=== PATIENT | female | born 2000 | race Caucasian/White ===

== ENCOUNTER 2019-01-26 20:53 | Inpatient (IN) | payer MEDICAID ==
[~2019-01-26] VITALS: Ht 172.7 cm; Wt 129.3 kg
[2019-01-26 21:00] VITALS: BP_SYST 147
--- NOTE | 2019-01-26 21:05 | NUR ---
Patient triaged and placed in waiting room. VSS and patient appears in no acute distress at this time. Accompanied by self , awaiting available bed, and MD notified of need for MSE.
--- NOTE | 2019-01-26 22:17 | NUR ---
PT AMBULATORY TO BED 2 FOR EVALUATION
--- NOTE | 2019-01-26 22:30 | NUR ---
Pt BIB family to ED C/O "pins and needles" tingling on skin top of chest radiating to front of neck and towards back of neck. Has been Dx with fibromyalgia in the past. Otherwise no significant med hx. Visited Urgent care and was given Xanox x 1 did not help much. No other injuries and or complaints noted and or observed. VSS no s/s of acute distress. Resting on gurney with rails up
--- NOTE | 2019-01-26 23:37 | NUR ---
Dr. Zuniga bedside for Pt eval
[2019-01-26] MEDS ORDERED: IPRATROPIUM/ALBUTEROL SULFATE 3 ML AMPUL.NEB (DUONEB) INH ONE (23:45)
[2019-01-26 23:46] LABS: BILIRUBIN,URINE NEGATIVE (NEGATIVE); BLOOD, URINE NEGATIVE (NEGATIVE); CLARITY/URINE CLEAR (CLEAR); COLOR,URINE YELLOW (YELLOW); GLUCOSE,URINE NEGATIVE (NEGATIVE); KETONES,URINE NEGATIVE (NEGATIVE); LEUKOCYTE ESTERASE ,URINE NEGATIVE (NEGATIVE); NITRITE, URINE NEGATIVE (NEGATIVE); PH,URINE 7.5 (5.0-8.0); PROTEIN URINE TRACE (NEGATIVE); UROBILINOGEN,URINE 0.2 (0.2-1.0)
[2019-01-26 23:49] LABS: BACTERIA,URINE FEW /HPF (None Seen); RBC,URINE 0-3 /HPF (0-3); WBC,URINE 0-3 /HPF (0-3)
--- NOTE | 2019-01-26 23:50 | NUR ---
RT bedside to adm breathing tx, Pt in stable condition
--- NOTE | 2019-01-27 00:02 | NUR ---
EKG performed bedside. Dr. Zuniga aware
[2019-01-27 01:16] LABS: BASOPHILS % (AUTO) 0.4 % (0.0-2.0); EOSINOPHILS # (AUTO) 0.1 K/uL (0.0-0.4); EOSINOPHILS % (AUTO) 0.9 % (0.0-4.0); HEMATOCRIT 37.8 % (36-48); HEMOGLOBIN 12.4 g/dL (12.0-16.0); LYMPHOCYTES # (AUTO) 5.2 K/uL (1.0-5.5); LYMPHOCYTES % (AUTO) 48.5 % (20.5-51.5); MEAN CORPUSCULAR HEMOGLOBIN 25 pg (27-31); MEAN CORPUSCULAR HGB CONC 33 % (32-36); MEAN CORPUSCULAR VOLUME 77 fL (79.0-98.0); MONOCYTES # (AUTO) 0.7 K/uL (0.0-1.0); MONOCYTES % (AUTO) 6.7 % (1.7-9.3); NEUTROPHILS # (AUTO) 4.7 K/uL (1.8-7.7); NEUTROPHILS % (AUTO) 43.5 % (40.0-70.0); PLATELET COUNT (AUTO) 383 K/uL (130-430); RED BLOOD CELL COUNT(AUTO) 4.94 MIL/uL (4.2-6.2); RED CELL DISTRIBUTION WIDTH 14.1 % (9.0-15.0); WHITE BLOOD COUNT (AUTO) 10.8 K/uL (4.5-11.0)
[2019-01-27 01:24] LABS: CALCIUM 8.8 mg/dL (8.4-11.0); CREATININE 0.8 mg/dL (0.55-1.30); POTASSIUM 3.4 mmol/L (3.5-5.1)
--- NOTE | 2019-01-27 01:30 | NUR ---
Pt states feeling a bit better. VSS no s/s of acute distress. Resting on gurney with rails up
[2019-01-27 01:39] LABS: ALBUMIN 3.4 g/dL (3.4-4.8); THYROID STIMULATING HORMONE 2.32 uIu/mL (0.36-3.74); TOTAL BILIRUBIN 0.5 mg/dL (0.0-1.0)
[2019-01-27] MEDS ORDERED: LORazepam 1 MG TABLET PO ONE (02:00)
[2019-01-27 02:17] LABS: BARBITURATE, URINE NEGATIVE (NEG <=200); BENZODIAZEPINE, URINE POSITIVE (NEG <=150); CANNABINOID, URINE POSITIVE (NEG <=50); COCAINE, URINE NEGATIVE (NEG <=150); METHAMPHETAMINES SCREEN,URINE NEGATIVE (NEG <=500); OPIATE, URINE NEGATIVE (NEG <=100); PHENCYCLIDINE SCREEN,URINE NEGATIVE (NEG <=25); URINE AMPHETAMINE NEGATIVE (NEG <=500); URINE METHADONE NEGATIVE (NEG <=200); URINE OXYCODONE SCREEN NEGATIVE (NEG <=100); URINE PROPOXYPHENE SCREEN NEGATIVE (NEG <=300)
[2019-01-27 02:18] LABS: UR TRICYCLIC ANTIDEPRESSANTS NEGATIVE (NEG <=300)
--- NOTE | 2019-01-27 04:34 | NUR ---
TELEPHONE REPORT FROM ER NURSE Telephone report was received from BENJAMIN Cortes, ER nurse. Report was endorsed to primary nurse receiving patient, Ella Paul RN.
[2019-01-27 04:54] VITALS: BP_SYST 131
--- NOTE | 2019-01-27 04:54 | NUR ---
Patient will be admitted to care of Dr. Rooney. Admitted to Med Surg unit. Will go to room 120B. Belongings list completed. Summary report printed. Report will be given at bedside.
--- NOTE | 2019-01-27 04:54 | NUR ---
ADMISSION NOTE Received patient from ER via pilo, received report from BENJAMIN FOX. Patient admitted with diagnosis of NEUROPATHY. Patient oriented to hospital routine, call light, toileting and safety-patient verbalized understanding.
--- NOTE | 2019-01-27 04:54 | NUR ---
Transfer to [facility] via ACLS protocol. Licensed nurse present. IV present no signs or symptoms of infiltration.
[2019-01-27] MEDS ORDERED: LORA-259 PO (05:08)
--- NOTE | 2019-01-27 06:13 | NUR ---
RN ROUNDS PT RESTING IN BED WITH VISITOR AT BEDSIDE, NO S/S OF ACUTE DISTRESS, BREATHING IS EVEN AND UNLABORED TO ROOM AIR. IV IS SALINE LOCKED. EXTRA BLANKETS BROUGHT PER PT REQUEST. PT EDUCATED ON USE OF CALL LIGHT AND ENCOURAGED TO CALL FOR FURTHER ASSISTANCE. SAFETY MAINTAINED: BED LOCKED IN LOWEST POSITION, CALL LIGHT WITH PT, SIDE RAILS UP X2, BED ALARM ON, CLOSE TO NURSES STATION. WILL MONITOR.
--- NOTE | 2019-01-27 06:20 | NUR ---
CLOSING NOTE ALL NEEDS MET DURING SHIFT. SAFETY MAINTAINED. WILL ENDORSE CARE TO DAY SHIFT RN.
[2019-01-27 08:00] VITALS: BP_SYST 134
--- NOTE | 2019-01-27 08:00 | NUR ---
Note Pt sitting up in bed, no SOB/resp distress or pain/discomfort was noted at this time. IV in right AC intact and patent. No needs noted at this time. Call light within reach.
[2019-01-27] MEDS ORDERED: MUPIROCIN 2% TOPICAL OINTMENT 22 GM NS PRN (08:15)
[2019-01-27] MEDS ORDERED: MAGNESIUM SULFATE 50 ML IV PRN (08:15)
[2019-01-27] MEDS ORDERED: LORazepam 2 MG/ML VIAL IVP PRN (08:15)
[2019-01-27] MEDS ORDERED: ONDANSETRON HCL 4 MG/2 ML VIAL IVP PRN (08:15)
[2019-01-27] MEDS ORDERED: ACETAMINOPHEN 325 MG TABLET PO PRN (08:15)
[2019-01-27] MEDS ORDERED: ZOLPIDEM TARTRATE 5 MG TABLET PO PRN (08:15)
[2019-01-27] MEDS ORDERED: MORPHINE 4 MG/ML INJ. SYRINGE IVP PRN ×2 (08:15)
[2019-01-27] MEDS ORDERED: DOCUSATE SODIUM 100 MG CAPSULE PO PRN (08:15)
[2019-01-27] MEDS ORDERED: POTASSIUM CHLORIDE 20 MEQ TAB.PRT.SR PO PRN (08:15)
--- NOTE | 2019-01-27 10:00 | NUR ---
Note Pt was crying and wanted to move to a room with less noise and which was dark. Pt was moved from rm 120B to rm 124B. 0825am - Dr Rooney on the floor and assessment was completed. Questions/concerns were answered at this time. 09am - pt's IV came off and pt did not want an new IV inserted at this time. Pt's fiance came to bedside at this time as well. No needs noted. Call light within reach.
--- NOTE | 2019-01-27 10:52 | NUR ---
Nutrition Update Arnold Scale 18 noted. Pt admitted for neuropathy. Diet: regular, vegan BMI: 43.3 kg/m2 RD to follow per nutrition care standards.
--- NOTE | 2019-01-27 12:00 | NUR ---
Note Pt asleep at this time, fiance at bedside in automobile washer steam. No needs noted at this time. Call light within reach.
[2019-01-27 13:03] VITALS: BP_SYST 129
--- NOTE | 2019-01-27 13:30 | NUR ---
Note Pt was assistant front end manager discharge instructions, questions/concerns were answered at this time. Pt stable - denies any SOB/resp distress or pain/discomfort all shift. Pt off the floor with her fiance to private car with all her belongings and discharge paperwork.
[2019-01-27 13:37] VITALS: BP_SYST 130
== END 2019-01-27 13:30 | disposition home or self-care (01) | DRG 756 ==
LOC: SED 20:53 → SMU 01-27 04:28
PROVIDERS: ADMIT General Practice; ATTEND General Practice
DX: F44.9 Dissociative and conversion disorder, unspecified (principal); E66.01 Morbid (severe) obesity due to excess calories; F31.9 Bipolar disorder, unspecified; Z68.41 Body mass index [BMI] 40.0-44.9, adult; E03.9 Hypothyroidism, unspecified; E11.9 Type 2 diabetes mellitus without complications; M79.7 Fibromyalgia; K21.9 Gastro-esophageal reflux disease without esophagitis; I10 Essential (primary) hypertension; Z96.89 Presence of other specified functional implants; J44.9 Chronic obstructive pulmonary disease, unspecified; F41.1 Generalized anxiety disorder; E66.1 Drug-induced obesity; Z88.0 Allergy status to penicillin; Z91.040 Latex allergy status; Z86.73 Personal history of transient ischemic attack (TIA), and cerebral infarction without residual deficits
CPT/HCPCS: 36415; 70450-TC; 71045; 80053; 80307; 81000-TC; 81025; 83036; 84443-TC; 85025; 93005; 94640; 99285; J2060; J7620

== ENCOUNTER 2020-10-16 23:37 | Emergency (ER) | payer MEDICAID, OTHER ==
[~2020-10-16] VITALS: Ht 172.7 cm; Wt 113.4 kg
[~2020-10-16 23:37] MED LIST: LORA-259 PO
[2020-10-16 23:40] VITALS: BP_SYST 148
[2020-10-17] MEDS ORDERED: KETOROLAC TROMETHAMINE 30 MG VIAL ONE (01:31)
[2020-10-17] MEDS: KETOROLAC TROMETHAMINE 30 MG VIAL IM ONE (01:45)
[2020-10-17 02:15] VITALS: BP_SYST 138
== END 2020-10-17 02:15 | disposition home or self-care (01) ==
LOC: SED 23:37
DX: R07.89 Other chest pain (principal); R06.00 Dyspnea, unspecified; J45.909 Unspecified asthma, uncomplicated; F41.9 Anxiety disorder, unspecified; Z88.0 Allergy status to penicillin; Z91.040 Latex allergy status; Z20.828 Contact with and (suspected) exposure to other viral communicable diseases
CPT/HCPCS: 71045; 96372; 99284; J1885; U0003; C9803